=== PATIENT | male | born 1985 | race Caucasian/White ===

== ENCOUNTER 2017-07-08 21:12 | Emergency (ER) | payer MEDICAID ==
[~2017-07-08] VITALS: Ht 180.3 cm; Wt 128.8 kg
[2017-07-08] MEDS ORDERED: ABILIFY20 MG PO (21:20)
--- NOTE | 2017-07-08 21:25 | Emergency Room Report ---
History of Present Illness Time Seen by [id number] Presenting Problem in Triage Pt arrived:Walked Presenting Problem:REPORTS COUGH AND CONGESTION FOR APPROX A MONTH, HAS GOTTEN WORSE OVER THE LAST COUPLE DAYS. REPORTS A "COLD" SENSATION WHEN TAKING A DEEP BREATH HAS NOT SEEN A PCP FOR THIS. 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 N Clinical Suspician of Infection? N Mental Status: 1 - Regular (Normal Baseline) Sepsis Risk:Low Sepsis Risk Have you (or family members/close friends) recently traveled outside the [place]? N If Yes, where/when: Have you had exposure to infectious disease within the past month? N TB? Other? Specify: Comment The patient's chief complaint is cough. He says he has had a productive cough for about 6 weeks or more. Sputum is clear to yellow. He denies fever. He has chronic chills and a chronic runny nose. He says he has asthma and always wheezes. He is supposed to be on Breo, but prefers a rescue inhaler, which she does not currently have. He is currently a smoker of 1.5 packs per day, formerly smoked 4 packs per day. States he wants to get on an antibiotic to keep him from going into pneumonia. He intermittently gets a cold sensation in his airway when he takes in a deep breath. ALLERGIES Coded Allergies: No Known Allergies (07/08/17) Home Medications Reported Medications Aripiprazole (Abilify) 10 MG PO DAILY History Medical History General CAD? No Angina: No CO: No Hypertension? Yes Hyperlipidemia? No CHF? No DVT? No PE? No Asthma? Yes Anemia? No GERD? No Gastric ulcers? No GI Bleed? No Hernia? No Thyroid Problems? No Hypothyroidism? No CVA? No Seizures? No Diabetes? No Renal Insuffiency? No End Stage Renal Disease? No UTI? No Stones? No BPH? No GB Disease: No Nephritic Syndrome? No Asplenia? No Hepatitis? No Sickle Cell Disease? No Arthritis? No Migraines? No Cataracts? No Glaucoma? No MRSA? No HIV? No TB? No Anxiety? No Depression? Yes Cancer? No More? No Immunization Hx DT/Tetanus Unknown Surgical Hx Previous Surgery?N Social History Smoking Hx Smoker: Current Every Day Smoker Tobacco: Yes Type Cigarettes Packs/day 1 1/2 - 2 Packs Are you/the child exposed to second-hand smoke: Yes Alcohol Alcohol: No Review of Systems All Other Systems Reviewed and Negative Constitutional chills, denies fever ENT nose discharge, throat pain (intermittent). Respiratory cough, wheezing Physical Exam Vital Signs Vital Signs Date Time Temp Pulse Resp B/P Pulse O2 O2 Flow FiO2 Ox Delivery Rate 07/08 2201 98.9 74 22 139/69 96 07/08 2159 74 22 139/69 96 07/08 2116 98.9 76 20 145/90 96 General Appearance normal appearance, WD/WN Eye Exam - bilateral eye normal exam, bilateral eye PERRL, bilateral eye EOMI Ear, Nose, Throat tympanic membranes and throat normal Neck normal inspection, non-tender, supple, full range of motion Respiratory Status Yes: trachea midline, chest symmetrical, non tender chest. No: respiratory distress. Lung Sounds bilateral: normal breath sounds, lungs clear. Cardiovascular normal exam, regular rate/rhythm, no peripheral edema, no gallop, no JVD, no murmur, no rub, normal peripheral pulses Peripheral Pulses Pulses normal Yes Gastrointestinal normal bowel sounds, normal exam, non tender, soft, no organomegaly Extremities non-tender, normal range of motion, normal inspection Neurologic alert, oriented x 3 Mental status normal mood/affect Skin intact, normal color, warm/dry Lymphatic no adenopathy Medical Decision Making LABS/Meds/Orders Pt receiving controlled substance in ED? No Results/Orders Current Medication Orders Sig/Joey Start time Last Medication Dose Route Stop Time Status Admin Azithromycin 0 .STK-MED ONE 07/08 2156 DC PO Benzonatate 0 .STK-MED ONE 07/08 2155 DC PO Azithromycin 500 MG ONCE ONE 07/08 2145 DC 07/08 PO 07/08 Benzonatate 200 MG ONCE ONE 07/08 2145 DC 07/08 PO 07/08 Orders Procedure Date/time Status CHEST(2 VIEWS-NOT PORTABLE) 07/08 2122 Active XRAY/CT/US XRAY/CT/US XRAY chest Comment Chest x-ray interpreted by Rocky Gramajo M.D. No infiltrate, pneumothorax, pleural effusion, or wide mediastinum. Departure Departure Disposition DC Home or Self Care(routine) Clinical Impression Primary Impression: Acute bronchitis Qualifiers: Bronchitis organism: unspecified organism Qualified Code: J20.9 - Acute bronchitis, unspecified Condition STABLE Patient Instructions DI for Acute Bronchitis Additional Instructions You are being provided with a list of physicians available for follow-up of your condition. Please call a physician on this list to arrange a follow-up appointment as soon as possible. Additional instructions for ACUTE BRONCHITIS: Use Tylenol or Ibuprofen for pain or fever. Rest and plenty of fluids. Return immediately if you have an uncontrollable fever greater than 102 degrees, severe headache or neck stiffness, difficulty breathing or shortness of breath, persistent vomiting, severe sore throat or inability to swallow. See your physician if not improving in 4-5 days. Prescriptions Current Visit Scripts Azithromycin (Zithromax) 250 MG PO DAILY #4 TAB Benzonatate (Tessalon Perle) 100 MG PO TID #15 SGL ALBUTEROL (Proventil Hfa Inhaler) 1-2 PUFF IH Q4-6H PRN #1 CAN Ref 1 ED Critical Care Critical Care No at [id number]
[2017-07-08] MEDS ORDERED: ZITHROMAX Z-PA250 M2 PO (21:42)
[2017-07-08] MEDS ORDERED: TESSALON PERLE100 M1 PO (21:42)
[2017-07-08] MEDS ORDERED: PROVENTIL0.09 MG/A1 IH (21:42)
[2017-07-08 22:01] VITALS: BP 139/69
--- NOTE | 2017-07-09 08:03 | RADIOLOGY REPORT PS360 ---
CHEST(2 VIEWS-NOT PORTABLE) COMPARISON: None HISTORY: Cough and congestion TECHNIQUE: PA and lateral chest FINDINGS: The lung llanes are well expanded and appear clear of infiltrate. There is apparent partially calcified nodule in the left lower lobe and there is a calcified left hilar nodes. Cardiac size is normal and the vascularity is normal and is no pleural fluid. IMPRESSION: Old granulomatous disease no acute chest pathology noted
== END 2017-07-08 22:02 | disposition home or self-care (01) ==
LOC: ER 21:12
DX: J20.9 Acute bronchitis, unspecified (principal); F17.210 Nicotine dependence, cigarettes, uncomplicated; I10 Essential (primary) hypertension; Z79.899 Other long term (current) drug therapy; J45.909 Unspecified asthma, uncomplicated; F32.9 Major depressive disorder, single episode, unspecified; T48.4X6A Underdosing of expectorants, initial encounter; Z91.128 Patient's intentional underdosing of medication regimen for other reason